=== PATIENT | male | born 1960 | race Caucasian/White ===

== ENCOUNTER 2018-01-06 17:28 | Emergency (ER) | payer OTHER ==
[2018-01-06 20:43] LABS: BASOPHILS 0.2 % (0-2); EOSINOPHILS 2.9 % (0-7); HEMATOCRIT 39.3 % (42.0-54.0); HEMOGLOBIN 13.6 g/dL (13.5-17.5); IMMATURE GRANULOCYTES 0.6 % (0-5); LYMPHOCYTES 19.1 % (15-50); MCH 30.3 pg (26.0-34.0); MCHC 34.6 g/dL (31.0-37.0); MCV 87.5 fL (80.0-100.0); MEAN PLATELET VOLUME 9.5 fL (7.4-10.4); MONOCYTES 6.9 % (2-11); NEUTROPHILS 70.3 % (40-80); PLATELET COUNT 219 10x3/uL (130-400); RBC 4.49 10x6/uL (4.20-6.10); RDW 13.6 % (11.5-14.5); WBC 8.9 10x3/uL (4.8-10.8)
[2018-01-06 21:08] LABS: ALBUMIN 3.5 g/dL (3.4-5.0); ANION GAP 15.1 mmol/L (8-16); BILIRUBIN - TOTAL 0.41 mg/dL (0.2-1.3); CALCIUM 8.5 mg/dL (8.5-10.1); CARBON DIOXIDE 23.9 mmol/L (21.0-32.0); CREATININE - SERUM 1.6 mg/dL (0.6-1.3); PROTEIN - SERUM 7.6 g/dL (6.4-8.2)
== END 2018-01-06 23:51 | disposition other institution (70) ==
LOC: D.ER 17:28
PROVIDERS: Family Medicine
DX: M86.8X7 Other osteomyelitis, ankle and foot (principal)

== ENCOUNTER 2018-10-13 18:55 | Emergency (ER) | payer OTHER ==
[~2018-10-13] VITALS: Ht 190.5 cm; Wt 147.7 kg
[2018-10-13 18:59] VITALS: Ht 190.5 cm; Wt 147.7 kg
[2018-10-13] MEDS ORDERED: PROCARDIA10 MG PO (19:00)
[2018-10-13] MEDS ORDERED: IBUPROFEN800 MG PO (19:01)
[2018-10-13] MEDS ORDERED: NEURONTIN800 MG PO (19:01)
[2018-10-13 22:43] LABS: BASOPHILS 0.5 % (0-2); EOSINOPHILS 3.8 % (0-7); HEMATOCRIT 40.2 % (42.0-54.0); HEMOGLOBIN 13.1 g/dL (13.5-17.5); IMMATURE GRANULOCYTES 0.2 % (0-5); LYMPHOCYTES 23.7 % (15-50); MCH 28.1 pg (26.0-34.0); MCHC 32.6 g/dL (31.0-37.0); MCV 86.1 fL (80.0-100.0); MEAN PLATELET VOLUME 9.7 fL (7.4-10.4); MONOCYTES 7.5 % (2-11); NEUTROPHILS 64.3 % (40-80); PLATELET COUNT 254 10x3/uL (130-400); RBC 4.67 10x6/uL (4.20-6.10); RDW 14.8 % (11.5-14.5); WBC 6.3 10x3/uL (4.8-10.8)
[2018-10-13 23:08] LABS: ALBUMIN 3.6 g/dL (3.4-5.0); BILIRUBIN - TOTAL 0.55 mg/dL (0.2-1.3); C-REACTIVE PROTEIN 5.3 mg/dL (0.0-0.9); CALCIUM 8.3 mg/dL (8.5-10.1); CARBON DIOXIDE 27.5 mmol/L (21.0-32.0); CREATININE - SERUM 1.8 mg/dL (0.6-1.3); POTASSIUM - SERUM 3.5 mmol/L (3.5-5.1); PROTEIN - SERUM 7.9 g/dL (6.4-8.2)
[2018-10-14 00:06] LABS: ERYTHROCYTE SEDIMENTATION RATE 17 mm/hr (0-20)
[2018-10-14 04:05] VITALS: BP 160/100
== END 2018-10-14 04:07 | disposition other institution (70) ==
LOC: D.ER 18:55
PROVIDERS: Family Medicine
DX: M25.571 Pain in right ankle and joints of right foot (principal); I12.9 Hypertensive chronic kidney disease with stage 1 through stage 4 chronic kidney disease, or unspecified chronic kidney disease; N18.9 Chronic kidney disease, unspecified; E11.9 Type 2 diabetes mellitus without complications; M86.8X7 Other osteomyelitis, ankle and foot